=== PATIENT | male | born 1960 | race Caucasian/White ===

== ENCOUNTER → 2017-02-06 | Outpatient (REF) | payer BC ==
[2017-02-06 14:00] LABS: MEAN CORPUSCULAR HEMOGLOBIN 32.7 pg (27.0-33.0); MEAN CORPUSCULAR HGB CONC 34.4 g/dl (32.0-36.5); MEAN CORPUSCULAR VOLUME 95.1 fl (80.0-96.0); RED CELL DISTRIBUTION WIDTH 12.6 % (11.5-14.5); WHITE BLOOD COUNT 7.8 10^3/uL (4.0-10.0)
[2017-02-11 00:06] LABS: D001-IgE D pteronyssinus <0.10 kU/L (Class 0); E001-IgE Cat Epith/Dander < 0.10 kU/L (Class 0); E005-IgE Dog Dander < 0.10 kU/L (Class 0); G002-IgE Bermuda Grass < 0.10 kU/L (Class 0); G008-IgE Kentucky Bluegrass < 0.10 kU/L (Class 0); M001-IgE Penicillium chrysogen < 0.10 kU/L (Class 0); M002 IgE Cladosporium herbaru < 0.10 kU/L (Class 0); M003 IgE Aspergillus fumigatu < 0.10 kU/L (Class 0); M006-IgE Alternaria alternata < 0.10 kU/L (Class 0); T001-IgE Maple/Box Elder < 0.10 kU/L (Class 0); T003-IgE Common Silver Birch < 0.10 kU/L (Class 0); T007-IgE Oak, White < 0.10 kU/L (Class 0); T008-IgE Elm, American < 0.10 kU/L (Class 0); T015-IgE Ash, White < 0.10 kU/L (Class 0); T041-IgE Hickory, White < 0.10 kU/L (Class 0); W001-IgE Ragweed, Short < 0.10 kU/L (Class 0); W009-IgE Plantain, English 0.12 kU/L (Class 0/I); W014-IgE Pigweed, Rough < 0.10 kU/L (Class 0); W018-IgE Sheep Sorrel < 0.10 kU/L (Class 0)
== END ==
LOC: M LAB REF 13:30
PROVIDERS: ATTEND Internal Medicine Pulmonary Disease
DX: R06.00 Dyspnea, unspecified (principal)

== ENCOUNTER → 2017-02-12 | Outpatient (CLI) | payer BC ==
--- NOTE | 2017-02-12 09:43 | REP ---
PA and lateral chest: Comparison is 01/24/2015. There is a 9 mm nodule inferiorly in the right lung, not present previously. Chest CT is recommended for further evaluation. The lung spear otherwise clear. Cardiac size is normal. The lizabeth, mediastinum, and bony thorax are unremarkable. Impression: 9 mm right lung nodule. CT is recommended for further evaluation. This was not present previously. Signed by Anuel Carcamo MD 02/12/2017 09:34 A
== END ==
LOC: M ADAMS 09:14
PROVIDERS: ATTEND Internal Medicine Pulmonary Disease
DX: R06.00 Dyspnea, unspecified (principal)

== ENCOUNTER → 2017-03-04 | Outpatient (CLI) | payer BC ==
[~2017-03-04] MED LIST: METHACHOLINE KIT (J7674) INH ONE
--- NOTE | 2017-03-04 09:48 | PFTRPT ---
Tech: Brii MONROY RRT Age: 56 Sex: Male Race: Height: 68.50 Inches Weight: 161.00 Lbs BSA: 1.87 Diagnosis: R06.00 METHACHOLINE CHALLENGE REPORT: ORDERING PROVIDER: Edd Sales DO DATING OF SERVICE: 03/04/17 INTERPRETATION: The study was of excellent technical quality. Under protocol, methacholine was administered. Even after a total of 25 mg (188.875 CDUs), no provocation dose was ever achieved. IMPRESSION: Negative methacholine challenge study. MTDD
== END ==
LOC: M CARPUL 08:53
PROVIDERS: ATTEND Internal Medicine Pulmonary Disease
DX: R06.00 Dyspnea, unspecified (principal)
CPT/HCPCS: 94070; J7674

== ENCOUNTER → 2017-03-06 | Outpatient (CLI) | payer BC ==
--- NOTE | 2017-03-06 17:03 | REP ---
CT chest without contrast: History: Abnormal finding in the lung spear. Comparison chest x-rays from February 12, 2017. This is reported as showing a 9 mm right lung nodule and CT was recommended. CT findings: Incidental note is made of a tiny right posterior tracheal diverticulum at the thoracic inlet. This is a normal variant. There is a small area of focal pleural thickening anteromedially in the right minor fissure which is not felt to be clinically significant. No pulmonary nodule is appreciated at the right base to explain the radiographic findings. No bone island is seen in the rib cage. There is a mild post-traumatic deformity involving the and there are anterior aspect of the right 3rd rib. No bony destructive lesion is seen. No adrenal lesion is observed. No hilar or mediastinal mass or adenopathy is seen. There is a pattern of subpleural emphysematous change in the right lower lobe posteriorly. Lung parenchyma is otherwise unremarkable. Impression: No active cardiopulmonary disease. No significant pulmonary nodule seen. Emphysematous changes are noted peripherally in the right lower lobe. Old post-traumatic deformity is seen in the right anterior 3rd rib. No significant pulmonary nodule. Signed by Luke Brady MD 03/06/2017 07:18 P
== END ==
LOC: M RAD 15:28
PROVIDERS: ATTEND Internal Medicine Pulmonary Disease
DX: R91.8 Other nonspecific abnormal finding of lung field (principal)

== ENCOUNTER 2018-11-24 19:21 | Emergency (ER) | payer BC ==
[~2018-11-24] VITALS: Ht 175.3 cm; Wt 77.3 kg
[2018-11-24] MEDS ORDERED: TOPA100T12 PO (19:30)
[2018-11-24] MEDS ORDERED: NS 1,000 ML IV ONE (20:30)
[2018-11-24] MEDS ORDERED: DICYCLOMINE 10 MG CAP PO ONE (20:30)
[2018-11-24 20:48] LABS: BASO # 0.1 10^3/uL (0.0-0.2); BASO % 0.5 % (0.0-1.0); EOS # 0.2 10^3/uL (0.0-0.50); EOS % 2.4 % (0.0-3.0); HEMATOCRIT 40.8 % (42.0-52.0); HEMOGLOBIN 14.2 g/dl (13.5-17.5); LYMPH # 2.9 10^3/uL (1.5-4.5); LYMPH % 29.7 % (24.0-44.0); MEAN CORPUSCULAR HEMOGLOBIN 32.9 pg (27.0-33.0); MEAN CORPUSCULAR HGB CONC 34.8 g/dl (32.0-36.5); MEAN CORPUSCULAR VOLUME 94.7 fl (80.0-96.0); MONO # 0.7 10^3/uL (0.0-0.8); MONO % 7.6 % (0.0-5.0); NEUTROPHILS # 5.8 10^3/uL (1.8-7.7); NEUTROPHILS % 59.5 % (36.0-66.0); PLATELET COUNT, AUTOMATED 118 10^3/uL (150-450); RED BLOOD COUNT 4.31 10^6/uL (4.30-6.10); WHITE BLOOD COUNT 9.8 10^3/uL (4.0-10.0)
[2018-11-24 21:18] LABS: ALBUMIN 3.6 GM/DL (3.2-5.2); ALT/SGPT 21 U/L (12-78); BILIRUBIN,DIRECT < 0.1 MG/DL (0.0-0.2); BILIRUBIN,TOTAL 0.2 MG/DL (0.2-1.0); BLOOD UREA NITROGEN 10 MG/DL (7-18); CALCIUM LEVEL 9.1 MG/DL (8.5-10.1); CARBON DIOXIDE LEVEL 29 MEQ/L (21-32); CHLORIDE LEVEL 108 MEQ/L (98-107); CREATININE FOR GFR 0.87 MG/DL (0.70-1.30); GLOMERULAR FILTRATION RATE > 60.0 (>56); GLUCOSE, FASTING 113 MG/DL (70-100); LIPASE 180 U/L (73-393); SODIUM LEVEL 142 MEQ/L (136-145); TOTAL PROTEIN 6.5 GM/DL (6.4-8.2)
[2018-11-24] MEDS ORDERED: ISOVUE-370 76% 100ML VIAL (Q9967) As Ordered ONE (21:43)
--- NOTE | 2018-11-24 23:26 | REPVR ---
EXAM: CT Abdomen and Pelvis With Contrast EXAM DATE/TIME: 11/24/2018 10:07 PM CLINICAL HISTORY: 58 years old, male; Abdominal pain; Localized; Left lower quadrant (llq); Additional info: Llq pain, HX divertic, diarrhea TECHNIQUE: Imaging protocol: Axial computed tomography images of the abdomen and pelvis with intravenous contrast. Coronal and sagittal reformatted images were created and reviewed. Radiation optimization: All CT scans at this facility use at least one of these dose optimization techniques: automated exposure control; mA and/or kV adjustment per patient size (includes targeted exams where dose is matched to clinical indication); or iterative reconstruction. Contrast material: ISOVUE 370; Contrast volume: 100 ml; Contrast route: IV; COMPARISON: No relevant prior studies available. FINDINGS: Lungs: Bibasilar atelectasis. Liver: There is a diffuse decrease in hepatic parenchymal density, consistent with fatty infiltration. Gallbladder and bile ducts: The gallbladder is incompletely distended. This is most likely related to incomplete fasting. Clinical correlation to exclude gallbladder pathology suggested. Pancreas: Normal. No ductal dilation. Spleen: Normal. No splenomegaly. Adrenals: Normal. No mass. Kidneys and ureters: Left renal cysts measure up to 1.3 cm. Stomach and bowel: Diverticulosis coli most pronounced in the left colon a focus of acute inflammation in the proximal sigmoid colon demonstrating thickened wall, boggy appearance and pericolonic inflammation. Findings consistent with acute diverticulitis. No drainable abscess demonstrated. Appendix: No evidence of appendicitis. Intraperitoneal space: Normal. No free air. No significant fluid collection. Vasculature: Normal. No abdominal aortic aneurysm. Lymph nodes: Normal. No enlarged lymph nodes. Bladder: Unremarkable as visualized. Reproductive: The prostate gland demonstrates mild hyperplasia. Bones/joints: The spine demonstrates mild degenerative changes. Soft tissues: Unremarkable. IMPRESSION: 1. There is a diffuse decrease in hepatic parenchymal density, consistent with fatty infiltration. 2. The gallbladder is incompletely distended. This is most likely related to incomplete fasting. Clinical correlation to exclude gallbladder pathology suggested. 3. Findings consistent with acute diverticulitis in the proximal sigmoid colon. No drainable abscess demonstrated. 4. Mild prostatic hyperplasia. Electronically signed by: Km Hermosillo On 11/24/2018 23:26:34 PM
[2018-11-24] MEDS ORDERED: CIPR-249 PO (23:39)
[2018-11-24] MEDS ORDERED: FLAG500T PO (23:39)
[2018-11-24] MEDS ORDERED: CIPROFLOXACIN 500 MG TAB PO ONE (23:45)
[2018-11-24] MEDS ORDERED: metroNIDAZOLE (FLAGYL) 500 MG TAB PO ONE (23:45)
[2018-11-24 23:52] VITALS: BP 130/77
== END 2018-11-24 23:52 | disposition home or self-care (01) ==
LOC: M ED 19:21
DX: K57.32 Diverticulitis of large intestine without perforation or abscess without bleeding (principal); A04.72 Enterocolitis due to Clostridium difficile, not specified as recurrent; Z87.820 Personal history of traumatic brain injury; M54.9 Dorsalgia, unspecified; Z79.899 Other long term (current) drug therapy; Z88.2 Allergy status to sulfonamides
CPT/HCPCS: 74177; 80048; 80076; 81001; 83690; 85025; 87507; 99284; Q9967

== ENCOUNTER → 2018-12-21 | Outpatient (REF) | payer BC ==
[~2018-12-21] MED LIST changes: +CIPR-249 PO; +FLAG500T PO; -METHACHOLINE KIT (J7674) INH ONE; +TOPA100T12 PO
== END ==
LOC: M LAB REF 08:45
PROVIDERS: ATTEND Internal Medicine
DX: R19.7 Diarrhea, unspecified (principal)

== ENCOUNTER → 2019-01-08 | Outpatient (REF) | payer BC | LOC: M LAB 09:07 | PROVIDERS: ATTEND Physician Assistant Medical | DX: R19.7 Diarrhea, unspecified (principal) ==

== ENCOUNTER → 2019-11-02 | Outpatient (CLI) | payer BC ==
[~2019-11-02] MED LIST changes: +LIDOCAINE 1% MDV 20ML VIAL As Ordered ONE; +SODIUM BICARBONATE 8.4% INJ 50MEQ 50 ML VIAL As Ordered ONE
[2019-11-02 13:06] VITALS: BP 151/81
--- NOTE | 2019-11-02 15:21 | REP ---
ULTRASOUND LEFT PAROTID: Real-time sonographic evaluation of the left parotid gland is performed. There is a hypoechoic nodule in the left parotid gland corresponding to the nodule seen on the recent CT at [facility] 10/18/2019. The hypoechoic nodule demonstrates internal blood flow with Doppler evaluation. It measures 1.2 x 1.0 x 1.5 cm. We will proceed with ultrasound-guided biopsy. Electronically Signed by Anuel Cavazos MD 11/02/2019 07:39 P
--- NOTE | 2019-11-02 19:57 | REP ---
Ultrasound-guided left parotid mass fine-needle aspiration This procedure was performed by MING Simpson, under the direct supervision of Dr. Cavazos. The risks and the benefits of the procedure were explained to the patient and informed consent was obtained both verbally and written. Directly prior to the start of the procedure, a formal time out was completed in the procedure room. The left parotid mass was localized using ultrasound guidance. The skin was prepped and draped in a sterile fashion. 2 ml of buffered lidocaine was used as a local anesthetic. Using ultrasound guidance 4 fine-needle aspirations were obtained using 25 gauge needles of the left parotid mass. The patient tolerated the procedure well and there were no immediate complications. After the appropriate amount of monitored convalescence the patient was discharged from the department. Reviewed by MING Simpson 11/02/2019 01:33 P Electronically Signed by Anuel Cavazos MD 11/02/2019 07:48 P
== END ==
LOC: M IRPRO 12:06
PROVIDERS: ATTEND Nurse Practitioner Adult Health
DX: D37.030 Neoplasm of uncertain behavior of the parotid salivary glands (principal)

== ENCOUNTER → 2021-03-13 | Outpatient (REF) | payer BC ==
[~2021-03-13] MED LIST changes: -LIDOCAINE 1% MDV 20ML VIAL As Ordered ONE; -SODIUM BICARBONATE 8.4% INJ 50MEQ 50 ML VIAL As Ordered ONE
== END ==
LOC: M LAB REF 17:06
PROVIDERS: ATTEND Nurse Practitioner Adult Health
DX: Z11.59 Encounter for screening for other viral diseases (principal)

== ENCOUNTER → 2021-03-28 | Outpatient (CLI) | payer BC ==
--- NOTE | 2021-03-28 11:19 | REP ---
INDICATION: WARTHINS TUMOR. COMPARISON: 11/02/2019 TECHNIQUE: Real-time sonographic evaluation of a known Warthin's tumor FINDINGS: Once again, there is a nearly round solid 1.6 x 1.1 x 1.3 cm sized nodule which is essentially unchanged compared to the prior exam. IMPRESSION: Ultrasonographically, there has been no significant change compared to the prior exam. <Electronically signed by Pierce Vogel > 03/28/21 1114
== END ==
LOC: M RAD 10:10
PROVIDERS: ATTEND Nurse Practitioner Adult Health
DX: D11.9 Benign neoplasm of major salivary gland, unspecified (principal)

== ENCOUNTER → 2021-08-30 | Outpatient (CLI) | payer MEDICAID ==
[~2021-08-30] MED LIST changes: +ISOVUE-370 76% 100ML VIAL As Ordered ONE
== END ==
LOC: M RAD 08:47
PROVIDERS: ATTEND Otolaryngology
DX: J38.1 Polyp of vocal cord and larynx (principal)
CPT/HCPCS: 70491; Q9967

== ENCOUNTER → 2021-09-27 | Outpatient (CLI) | payer MEDICAID ==
[~2021-09-27] MED LIST changes: -ISOVUE-370 76% 100ML VIAL As Ordered ONE
[2021-09-27 11:04] LABS: HEMATOCRIT 46.9 % (42.0-52.0); HEMOGLOBIN 15.9 g/dl (13.5-17.5); MEAN CORPUSCULAR HEMOGLOBIN 32.7 pg (27.0-33.0); MEAN CORPUSCULAR HGB CONC 33.9 g/dl (32.0-36.5); MEAN CORPUSCULAR VOLUME 96.5 fl (80.0-96.0); PLATELET COUNT, AUTOMATED 125 10^3/uL (150-450); RED BLOOD COUNT 4.86 10^6/uL (4.30-6.10); WHITE BLOOD COUNT 11.4 10^3/uL (4.0-10.0)
[2021-09-27 11:36] LABS: ERYTHROCYTE SEDIMENTATION RATE 8 mm/hr (0-20)
[2021-09-27 11:57] LABS: ALT/SGPT 20 U/L (12-78); BILIRUBIN,TOTAL 0.5 MG/DL (0.2-1.0); BLOOD UREA NITROGEN 11 MG/DL (7-18); CALCIUM LEVEL 9.1 MG/DL (8.8-10.2); CARBON DIOXIDE LEVEL 28 MEQ/L (21-32); CHLORIDE LEVEL 108 MEQ/L (98-107); CREATININE FOR GFR 0.98 MG/DL (0.70-1.30); GLOMERULAR FILTRATION RATE > 60.0 (>49); GLUCOSE, FASTING 125 MG/DL (70-100); POTASSIUM SERUM 4.2 MEQ/L (3.5-5.1); RHEUMATOID FACTOR QUANT < 10.0 IU/ML (<15.0); SODIUM LEVEL 139 MEQ/L (136-145); TOTAL PROTEIN 6.9 GM/DL (6.4-8.2)
[2021-09-27 20:25] LABS: FOLATE 8.7 NG/ML
== END ==
LOC: M LAB 10:15
PROVIDERS: ATTEND Psychiatry & Neurology Neurology
DX: E07.9 Disorder of thyroid, unspecified (principal); E53.8 Deficiency of other specified B group vitamins; R41.3 Other amnesia; Z11.3 Encounter for screening for infections with a predominantly sexual mode of transmission

== ENCOUNTER → 2021-10-08 | Outpatient (REF) | payer BC, MEDICAID ==
[~2021-10-08] MED LIST changes: +AMIT25TA17; +NUED20CA; +SYMB16INH; +TOPI50TA9
== END ==
LOC: M SFHCDERM 14:08
PROVIDERS: ATTEND Nurse Practitioner Family
DX: J34.89 Other specified disorders of nose and nasal sinuses (principal)

== ENCOUNTER → 2021-10-10 | Outpatient (CLI) | payer MEDICAID ==
[~2021-10-10] MED LIST changes: -AMIT25TA17; -NUED20CA; -SYMB16INH; -TOPI50TA9
== END ==
LOC: M LABSMTC 09:33
PROVIDERS: ATTEND Anesthesiology
DX: Z01.818 Encounter for other preprocedural examination (principal); Z11.52 Encounter for screening for COVID-19

== ENCOUNTER 2021-10-15 06:30 | Day surgery (SDC) | payer BC, MEDICAID ==
[~2021-10-15] VITALS: Ht 175.3 cm; Wt 74.9 kg
[~2021-10-15 06:30] MED LIST changes: +AMIT25TA17; +NUED20CA; +SYMB16INH; +TOPI50TA9
[2021-10-15] MEDS ORDERED: LR 1,000 ML IV SCH ×3 (07:20→13:05)
[2021-10-15] MEDS ORDERED: METHYLENE BLUE 0.5% (5MG/ML) 10 ML AMP (PROVAYBLUE) As Ordered ONE (08:05)
[2021-10-15] MEDS ORDERED: LIDOCAINE W/EPINEPHRINE 1% 20ML VIAL As Ordered ONE (08:05)
[2021-10-15] MEDS ORDERED: OXYMETAZOLINE 0.05% NASAL SPRAY (AFRIN) As Ordered ONE (08:05)
[2021-10-15] MEDS ORDERED: fentaNYL 100 MCG/2 ML INJECTION As Ordered ONE ×2 (08:07→08:43)
[2021-10-15] MEDS ORDERED: MIDAZOLAM INJ 2MG/2ML VIAL (J2250 PER 1MG) As Ordered ONE (08:08)
[2021-10-15] MEDS ORDERED: dexameTHASONE 4 MG/ML 1ML VIAL (J1100 PER 1MG) As Ordered ONE (08:08)
[2021-10-15] MEDS ORDERED: LIDOCAINE 2% 100MG/5ML SDV (FOR ANES.) As Ordered ONE (08:08)
[2021-10-15] MEDS ORDERED: ACETAMINOPHEN 1000MG 100ML IV BTL (OFIRMEV) (J0131 PER 10MG) As Ordered ONE (08:08)
[2021-10-15] MEDS ORDERED: propofoL 200 MG/20 ML VIAL As Ordered ONE (08:08)
[2021-10-15] MEDS ORDERED: ROCURONIUM BROMIDE 50 MG/5 ML VIAL As Ordered ONE (08:08)
[2021-10-15] MEDS ORDERED: ONDANSETRON 4MG/2ML VIAL As Ordered ONE (08:08)
[2021-10-15] MEDS ORDERED: ePHEDrine SULFATE 25 MG/5 ML(5MG/ML) SYRINGE As Ordered ONE (08:38)
[2021-10-15] MEDS ORDERED: SUGAMMADEX SODIUM 500 MG/5 ML VIAL (BRIDION) As Ordered ONE (08:47)
[2021-10-15] MEDS ORDERED: fentaNYL 100 MCG/2 ML INJECTION IV PRN (09:25)
[2021-10-15] MEDS ORDERED: oxyCODONE 5MG TAB PO PRN (09:25)
[2021-10-15] MEDS ORDERED: ONDANSETRON 4MG/2ML VIAL IV PRN (09:25)
[2021-10-15 10:32] VITALS: BP 145/71
== END 2021-10-15 11:18 | disposition home or self-care (01) ==
LOC: M SDC 06:30
PROVIDERS: ATTEND Otolaryngology
DX: J38.1 Polyp of vocal cord and larynx (principal); K21.9 Gastro-esophageal reflux disease without esophagitis; M54.9 Dorsalgia, unspecified; Z72.0 Tobacco use
CPT/HCPCS: 31536; 88305; J0131; J1100; J2250; J2405; J3010; Q9968

== ENCOUNTER → 2021-11-06 | Outpatient (REF) | payer BC | LOC: M LAB REF 16:58 | PROVIDERS: ATTEND Otolaryngology | DX: J34.0 Abscess, furuncle and carbuncle of nose (principal) ==

== ENCOUNTER → 2021-11-21 | Outpatient (CLI) | payer BC | LOC: M RAD 08:30 | PROVIDERS: ATTEND Otolaryngology | DX: J32.3 Chronic sphenoidal sinusitis (principal) ==

== ENCOUNTER → 2022-01-02 | Outpatient (CLI) | payer BC ==
[2022-01-02 15:14] LABS: BLOOD UREA NITROGEN 9 MG/DL (7-18); CREATININE FOR GFR 0.83 MG/DL (0.70-1.30); GLOMERULAR FILTRATION RATE > 60.0 (>49)
== END ==
LOC: M LAB 13:28
PROVIDERS: ATTEND Otolaryngology
DX: J32.3 Chronic sphenoidal sinusitis (principal); R51.9 Headache, unspecified; J38.1 Polyp of vocal cord and larynx

== ENCOUNTER → 2022-01-06 | Outpatient (CLI) | payer BC ==
[~2022-01-06] MED LIST changes: +PROHANCE 279.3MG/ML 15ML VIAL ONE
== END ==
LOC: M PLAIMG 08:47
PROVIDERS: ATTEND Otolaryngology
DX: J32.3 Chronic sphenoidal sinusitis (principal)
CPT/HCPCS: 70553; A9576

== ENCOUNTER → 2022-02-11 | Outpatient (CLI) | payer BC ==
[~2022-02-11] MED LIST changes: -PROHANCE 279.3MG/ML 15ML VIAL ONE
== END ==
LOC: M LAB 11:28
PROVIDERS: ATTEND Physician Assistant
DX: R06.00 Dyspnea, unspecified (principal)

== ENCOUNTER → 2022-02-24 | Outpatient (REF) | payer BC | LOC: M SFHCDERM 13:50 | PROVIDERS: ATTEND Nurse Practitioner Family | DX: L85.9 Epidermal thickening, unspecified (principal); R23.4 Changes in skin texture ==

== ENCOUNTER 2024-04-20 11:27 | Day surgery (SDC) | payer BC ==
[~2024-04-20] VITALS: Ht 175.3 cm; Wt 75.6 kg
[~2024-04-20 11:27] MED LIST changes: -AMIT25TA17; +AMIT25TA19; +TOPI-21; -TOPI50TA9
[2024-04-20] MEDS ORDERED: ALBUTEROL SULFATE 2.5MG/0.5ML INH NEB SOLN NEB ONE (12:00)
[2024-04-20] MEDS ORDERED: ALBUTEROL SULFATE 2.5MG/0.5ML INH NEB SOLN As Ordered ONE (12:02)
[2024-04-20] MEDS ORDERED: propofoL 200 MG/20 ML VIAL As Ordered ONE (12:50)
[2024-04-20] MEDS ORDERED: LIDOCAINE 2% 100MG/5ML SDV (FOR ANES.) As Ordered ONE (12:51)
[2024-04-20 12:57] VITALS: TEMP 97.2
[2024-04-20 13:20] VITALS: BP 114/67; O2SAT 100
== END 2024-04-20 13:33 | disposition home or self-care (01) ==
LOC: M OPP 11:27
PROVIDERS: ATTEND Internal Medicine Gastroenterology
DX: K64.0 First degree hemorrhoids (principal); Z86.0100 Personal history of colon polyps, unspecified; K57.30 Diverticulosis of large intestine without perforation or abscess without bleeding; F17.210 Nicotine dependence, cigarettes, uncomplicated; F12.10 Cannabis abuse, uncomplicated; Z88.2 Allergy status to sulfonamides; Z87.820 Personal history of traumatic brain injury

== ENCOUNTER → 2024-06-24 | Outpatient (CLI) | payer BC | LOC: M RAD 14:06 | PROVIDERS: ATTEND Physician Assistant Surgical | DX: S46.011A Strain of muscle(s) and tendon(s) of the rotator cuff of right shoulder, initial encounter (principal) ==

== ENCOUNTER → 2024-07-04 | Outpatient (REF) | payer BC ==
[2024-07-04 12:53] LABS: BASO # 0.1 10^3/uL (0.0-0.2); BASO % 0.8 % (0.0-1.0); EOS # 0.2 10^3/uL (0.0-0.5); HEMATOCRIT 43.8 % (42.0-52.0); HEMOGLOBIN 14.7 g/dl (13.5-17.5); LYMPH # 3.2 10^3/uL (1.5-5.0); LYMPH % 32.1 % (24.0-44.0); MEAN CORPUSCULAR HEMOGLOBIN 32.7 pg (27.0-33.0); MEAN CORPUSCULAR HGB CONC 33.6 g/dl (32.0-36.5); MEAN CORPUSCULAR VOLUME 97.6 fl (80.0-96.0); MONO # 0.9 10^3/uL (0.0-0.8); MONO % 9.1 % (2.0-8.0); NEUTROPHILS # 5.5 10^3/uL (1.5-8.5); NEUTROPHILS % 55.5 % (36.0-66.0); PLATELET COUNT, AUTOMATED 147 10^3/uL (150-450); RED BLOOD COUNT 4.49 10^6/uL (4.30-6.10); WHITE BLOOD COUNT 9.9 10^3/uL (4.0-10.0)
[2024-07-04 13:08] LABS: PROSTATIC SPECIFIC AG MONITOR 0.96 NG/ML (< 4.00)
[2024-07-04 13:17] LABS: ALKALINE PHOSPHATASE 85 U/L (40-129); ALT/SGPT 16 U/L (7.0-40); AST/SGOT 17 U/L (<34); BILIRUBIN,TOTAL 0.4 MG/DL (0.3-1.2); BLOOD UREA NITROGEN 13 MG/DL (9-23); CALCIUM LEVEL 9.1 MG/DL (8.3-10.6); CARBON DIOXIDE LEVEL 26 MMOL/L (20-31); CHLORIDE LEVEL 107 MMOL/L (98-107); CHOLESTEROL LEVEL 207 MG/DL (<200); CHOLESTEROL RISK RATIO 4.79 (<5); CREATININE FOR GFR 0.86 MG/DL (0.70-1.30); GLOMERULAR FILTRATION RATE > 60.0 (>49); GLUCOSE, FASTING 104 MG/DL (74-106); HDL CHOLESTEROL 43.2 MG/DL (>40); LDL CHOLESTEROL 146.2 MG/DL (<100); NON-HDL-C 163.8 MG/DL; POTASSIUM SERUM 4.6 MMOL/L (3.5-5.1); SODIUM LEVEL 139 MMOL/L (136-145); TOTAL PROTEIN 6.9 G/DL (5.7-8.2); TRIGLYCERIDES LEVEL 88 MG/DL (<150)
== END ==
LOC: M LAB REF 12:10
PROVIDERS: ATTEND Nurse Practitioner Family
DX: E78.5 Hyperlipidemia, unspecified (principal); J44.9 Chronic obstructive pulmonary disease, unspecified; Z00.01 Encounter for general adult medical examination with abnormal findings

== ENCOUNTER → 2024-07-07 | Outpatient (CLI) | payer BC ==
[~2024-07-07] MED LIST changes: +PROHANCE 279.3MG/ML 15ML VIAL ONE
== END ==
LOC: M PLAIMG 13:17
PROVIDERS: ATTEND Ophthalmology
DX: G43.109 Migraine with aura, not intractable, without status migrainosus (principal)